=== PATIENT | male | born 1980 | race Caucasian/White ===

== ENCOUNTER 2016-07-19 16:38 | Emergency (ER) | payer OTHER ==
[~2016-07-19] VITALS: Ht 177.8 cm; Wt 90.9 kg
[~2016-07-19 16:38] MED LIST: HYDR-965 PO; METH-37 PO; NAPR375T3 PO; OMEP20TA PO
[2016-07-19] MEDS ORDERED: ONDANSETRON PF 4 MG/2 ML VIAL. IV ONE (17:00)
[2016-07-19] MEDS ORDERED: MORPHINE SULFATE 4 MG/ML DISP.SYRIN. IV/SQ PRN (17:00)
[2016-07-19] MEDS ORDERED: IV NORMAL SALINE 1000ML BAG 1,000 ML IV SCH (17:00)
[2016-07-19 17:31] LABS: BASO # 0.1 x10^3/uL (0.0-0.2); BASO % 1 % (0-3); EOS % 2 % (0-3); HEMATOCRIT 40.3 % (39.0-53.0); HEMOGLOBIN 13.3 g/dL (13.0-17.5); LYMPH # 2.4 x10^3/uL (1.0-4.8); LYMPH % 26 % (24-48); MEAN CORPUSCULAR HEMOGLOBIN 31 pg (25-35); MEAN CORPUSCULAR HGB CONC 33 g/dL (31-37); MEAN CORPUSCULAR VOLUME 94 fL (79-100); MONO % 7 % (0-9); NEUT % 64 % (31-73); PLATELET COUNT 262 x10^3/uL (140-400); RED BLOOD COUNT 4.29 x10^6/uL (4.30-5.70); RED CELL DISTRIBUTION WIDTH 13.3 % (11.5-14.5); WHITE BLOOD COUNT 9.5 x10^3/uL (4.0-11.0)
[2016-07-19 17:39] LABS: CALCIUM 8.6 mg/dL (8.5-10.1); CREATININE 0.9 mg/dL (0.7-1.3); POTASSIUM 4.1 mmol/L (3.5-5.1)
[2016-07-19 17:40] LABS: PROTHROMBIN TIME PATIENT 12.2 SEC (11.7-14.0)
[2016-07-19 17:44] LABS: ALBUMIN 3.7 g/dL (3.4-5.0); ALBUMIN/GLOBULIN RATIO 1.2 (1.0-1.7); TOTAL BILIRUBIN 0.3 mg/dL (0.2-1.0); TOTAL PROTEIN 6.9 g/dL (6.4-8.2)
[2016-07-19] MEDS ORDERED: IOHEXOL 300 MG/ML 75 ML VIAL IV ONE (18:00)
[2016-07-19] MEDS ORDERED: CONTRAST GIVEN MC PRN (18:00)
--- NOTE | 2016-07-19 18:20 | RAD ---
PROCEDURE CT abdomen pelvis with intravenous contrast. HISTORY Blood in urine after fall, right flank pain, hematuria TECHNIQUE After administration of intravenous contrast, CT imaging was performed of the abdomen pelvis, multiplanar reconstruction images submitted. No oral contrast was given as per request. Exposure: One or more of the following individualized dose reduction techniques were utilized for this exam: 1. Automated exposure control. 2. Adjustment of the mA and/or kV according to patient size. 3. Use of iterative reconstruction technique. Contrast: 78 cc Omnipaque 300 COMPARISON None FINDINGS There is no significant abnormality limited visualized lung bases. No focal abnormality is identified of the liver, spleen, pancreas, gallbladder, adrenal glands. Both kidneys without hydronephrosis or focal abnormality. There is no significant perinephric stranding change. Appendix caliber is considered somewhat prominent 0.7 centimeters although no adjacent inflammatory type change, courses posterolateral to the ascending colon. There is no significant free air or free fluid. Bowel is not significantly dilated. Accurate evaluation of bowel is limited without oral contrast. Urinary bladder morphology is within normal limits. Calcifications in the bilateral pelvis are likely due to phleboliths. IMPRESSION 1. No significant abnormality is identified of the kidneys. 2. Appendix caliber is considered somewhat prominent 0.7 centimeters although no other findings suggestive of acute appendicitis. Electronically signed by: Buzz Mcgowan MD (July 19, 2016 18:18:04)
--- NOTE | 2016-07-19 18:27 | RAD ---
PROCEDURE CT lumbar spine without contrast. HISTORY Blood in urine after fall, back pain TECHNIQUE Noncontrast CT imaging was performed of the lumbar spine, multiplanar reconstruction images submitted. Exposure: One or more of the following individualized dose reduction techniques were utilized for this exam: 1. Automated exposure control. 2. Adjustment of the mA and/or kV according to patient size. 3. Use of iterative reconstruction technique. COMPARISON None FINDINGS Lumbar vertebral body stature and AP alignment are maintained. No acute lumbar spine fracture is identified. Intervertebral disc spaces are overall adequate. IMPRESSION No acute lumbar spine fracture is identified. Electronically signed by: Buzz Mcgowan MD (July 19, 2016 18:26:22)
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
[2016-07-19 18:42] VITALS: BP 144/83
[2016-07-19 18:45] LABS: BILIRUBIN,URINE NEGATIVE (NEG); GLUCOSE,URINE NEGATIVE (NEG); NITRITE,URINE NEGATIVE (NEG); PROTEIN,URINE NEGATIVE (NEG-TRACE); UROBILINOGEN,URINE 0.2 mg/dL (0.2 mg/dL)
[2016-07-19] MEDS ORDERED: IV NORMAL SALINE 1000ML BAG 1,000 ML IV ONE (18:45)
[2016-07-19 18:56] LABS: BACTERIA,URINE 0 /HPF (0-FEW); RBC,URINE 0 /HPF (0-2); SQUAMOUS EPITHELIAL CELL,UR OCC /LPF
[2016-07-19] MEDS ORDERED: NAPR500T PO (19:08)
== END 2016-07-19 19:14 | disposition home or self-care (01) ==
LOC: ER 16:38
DX: S39.012A Strain of muscle, fascia and tendon of lower back, initial encounter (principal); Z88.8 Allergy status to other drugs, medicaments and biological substances; W01.0XXA Fall on same level from slipping, tripping and stumbling without subsequent striking against object, initial encounter; Y93.89 Activity, other specified; Y92.89 Other specified places as the place of occurrence of the external cause; Y99.8 Other external cause status
CPT/HCPCS: 36415; 74177; 80053; 81001; 85027; 85610; 85730; 96361; 96374; 96375; 99285; J2270; J2405; J7030; Q9967